=== PATIENT | female | born 1965 | race African-American/Black ===

== ENCOUNTER 2017-01-18 06:56 | Observation (INO) | payer BC ==
[2017-01-18 07:35] VITALS: BMI 28.3
[2017-01-18] MEDS ORDERED: SODIUM CHLORIDE 500 ML IV ONE (07:36)
[2017-01-18] MEDS ORDERED: ASPIRIN 81 MG CHEWABLE TABLETS PO ONE (07:36)
[2017-01-18] MEDS ORDERED: NITROGLYCERIN SUBLINGUAL 1/150 0.4 MG TAB SL ONE (07:36)
--- NOTE | 2017-01-18 07:38 | PDOC ---
History of Present Illness - General History Source: Patient Exam Limitations: No Limitations - History of Present Illness Initial Comments: 01/18/17 07:40 The patient is a 51 year old female, with a significant past medical history of anxiety, who presents to the emergency department with chest pain onset today after a 5:30am walk. She describes her chest pain as a sharp pressure, ranging from mils to moderate, without radiation or modifying factors. She states that she has shortness of breath associated with her chief complaint. She notes that she does not walk everyday but shes usually adeliada to walk for long periods of time. She states that today she was unable to walk more than 4 blocks. She reports that yesterday a work she began to feel nauseous and generally weak. She states that she had been nauseous prior to yesterdays episode. She denies any recent illness or travel. She reports that she had a stress test roughly 15 years ago, not sure why and not sure of the results. The patient denies headache and dizziness. Denies fever, chills, vomit, diarrhea and constipation. Denies dysuria, frequency, urgency and hematuria. Allergies: Vicodin, Iodine Past surgical history: Hysterectomy Social history: No alcohol, tobacco or drug use reported <Emery Garcia - Last Filed: 01/18/17 08:42> <Jorge Leon - Last Filed: 01/18/17 10:42> - General Stated Complaint: CHEST PAIN Time Seen by Provider: 01/18/17 07:36 Past History <Emery Garcia - Last Filed: 01/18/17 08:42> - Psycho/Social/Smoking Cessation Hx Anxiety: Yes Suicidal Ideation: No Smoking History: Never smoked Have you smoked in the past 12 months: No Information on smoking cessation initiated: No Hx Alcohol Use: No Drug/Substance Use Hx: No Substance Use Type: None <Jorge Leon - Last Filed: 01/18/17 10:42> - Past Medical History Allergies/Adverse Reactions: Allergies Allergy/AdvReac Type Severity Reaction Status Date / Time iodine Allergy Verified 01/18/17 07:35 acetaminophen [From Vicodin] AdvReac Verified 01/18/17 07:35 hydrocodone bitartrate AdvReac Verified 01/18/17 07:35 [From Vicodin] Home Medications: Ambulatory Orders Alprazolam [Xanax -] 0.5 mg PO PRN PRN 09/18/13 Review of Systems - Review of Systems Comments:: 01/18/17 07:41 <Emery Garcia - Last Filed: 01/18/17 08:42> - Review of Systems Constitutional: No: Chills, Fever HEENTM: No: Throat Swelling Respiratory: Yes: Shortness of Breath, SOB with Exertion. No: Cough Cardiac (ROS): Yes: Chest Pain, Lightheadedness. No: Edema, Palpitations, Syncope ABD/GI: Yes: Nausea. No: Vomiting Musculoskeletal: No: Muscle Pain Neurological: No: Headache All Other Systems: Reviewed and Negative <Jorge Leon - Last Filed: 01/18/17 10:42> *Physical Exam - Vital Signs Last Vital Signs Temp Pulse Resp BP Pulse Ox 98.0 F 93 H 18 103/82 100 01/18/17 07:00 01/18/17 07:00 01/18/17 07:00 01/18/17 07:00 01/18/17 07:00 - Physical Exam Comments: 01/18/17 07:41 GENERAL: The patient is awake, alert, and fully oriented, in no acute distress. HEAD: Normal with no signs of trauma. EYES: Pupils equal, round and reactive to light, extraocular movements intact, sclera anicteric, conjunctiva clear with no pallor. ENT: Ears normal, nares patent, oropharynx clear without exudates. Moist mucous membranes. NECK: Normal range of motion, supple without lymphadenopathy, JVD, or masses. LUNGS: Breath sounds equal, clear to auscultation bilaterally. No wheeze/ crackles. HEART: Regular rate and rhythm, normal S1 and S2 without murmur or rub. ABDOMEN: Soft/nontender/nondistended. BS wnl. No guarding or rebound. No palpable masses. No hepatosplenomegaly. EXTREMITIES: Normal range of motion, no edema. No clubbing or cyanosis. No cords , erythema, or tenderness. NEUROLOGICAL: Cranial nerves II through XII grossly intact. Normal speech, normal gait. PSYCH: Normal mood, normal affect. SKIN: Warm, Dry, normal turgor, no rashes or lesions noted. <Emery Garcia - Last Filed: 01/18/17 08:42> - Vital Signs Last Vital Signs Temp Pulse Resp BP Pulse Ox 98.0 F 93 H 18 103/82 100 01/18/17 07:00 01/18/17 07:00 01/18/17 07:00 01/18/17 07:00 01/18/17 07:00 <Jorge Leon - Last Filed: 01/18/17 10:42> Heart Score/ECG Review - History History: Moderately suspicious - Electrocardiogram EKG: Non specific repolarization disturbance - Age Age: 45-65 - Risk Factors Based on the list above the patient has:: No risk factors known - Troponin Troponin: </= normal limit - Score Heart Score - Total: 3 #1 ECG reviewed & interpreted by me at: 07:05 General ECG Interpretation: Sinus Rhythm, Normal Rate (97), Normal Intervals, No acute ischemic changes (nonspecific t wave changes inferior and lateral I/AVL ) #2 ECG reviewed & interpreted by me at: 08:01 General ECG Interpretation: Sinus Rhythm, Normal Rate (77), Normal Intervals, No acute ischemic changes (no acute ST changes) <Jorge Leon - Last Filed: 01/18/17 10:42> ED Treatment Course - LABORATORY CBC & Chemistry Diagram: 01/18/17 08:00 01/18/17 08:00 <Emery Garcia - Last Filed: 01/18/17 08:42> - LABORATORY CBC & Chemistry Diagram: 01/18/17 08:00 01/18/17 08:00 <Jorge Leon - Last Filed: 01/18/17 10:42> Medical Decision Making - Medical Decision Making 01/18/17 08:15 A portion of this note was documented by scribe services under my direction. I have reviewed the details of the note, within reason, and agree with the documentation with the following case summary and management plan written by me. 51-year-old female with no significant past medical history, and no notable ACS risk factors presents with chest pain this morning. Patient had new onset of exertional chest pain 2 days ago, since then has noticed fatigue with shortness of breath and a right sided/substernal chest tightness particularly with exertion. The dyspnea resolves with rest, but the chest pain persists, so she presents for evaluation. The episode this morning occurred with her 5:30 AM walk , her chest pain was persistent in the ED. Had a stress test about 15 years ago for unclear etiology that was reportedly normal. Denies smoking or cocaine use, denies significant family history, denies PE risk factors. Had a cholecystectomy in the past. Exam as noted and within normal limits EKG shows nonspecific T-wave changes, a repeat shows questionable normalization of the T-wave in aVL, the T waves in the inferior leads are still flattened. No ST changes. This is a 51-year-old female who presents with exertional chest pain and dyspnea over the last 48 hours, concerning for acute cardio pulmonary process. ACS seems highest on differential, patient is low risk for PE, will rule out other metabolic process such as anemia. Labs including d-dimer, urinalysis, urine EKG, chest x-ray Aspirin, nitroglycerin Will require admission for telemetry monitoring and further cardiac workup 01/18/17 09:45 Troponin negative, labs within normal limits. Ddimer pending, CXR pending. Pain improved after ntg, will proceed with admission plan. 01/18/17 10:40 Signout given to BALDO Elena, accepted by Dr. Stone for obs tele. Ddimer in normal range. CXR wnl on my prelim read. <Jorge Leon - Last Filed: 01/18/17 10:42> *DC/Admit/Observation/Transfer - Attestations Scribe Attestion: 01/18/17 07:41 Documentation prepared by Emery Garcia, acting as medical screener for Jorge Leon MD <Emery Garcia - Last Filed: 01/18/17 08:42> - Discharge Dispostion Admit: Yes <Jorge Leon - Last Filed: 01/18/17 10:42> Diagnosis at time of Disposition: Precordial chest pain, Dyspnea on exertion - Discharge Dispostion Condition at time of disposition: Fair
[2017-01-18 08:16] LABS: BASOPHIL 0.8 % (0-2.0); EOSINOPHIL 2.8 % (0-4.5); MCH 29.4 pg (25.7-33.7); MCHC 34.2 g/dl (32.0-36.0); MEAN CELL VOLUME 85.9 fl (80-96); MEAN PLT VOLUME 6.8 fl (7.5-11.1); NEUTROPHILS 60.5 % (42.8-82.8); PLATELET COUNT 370 K/MM3 (134-434); WHITE BLOOD COUNT 8.2 K/mm3 (4.0-10.0)
[2017-01-18] MEDS ORDERED: ASPIRIN 325 MG TABLET ONE (08:19)
[2017-01-18] MEDS ORDERED: NITROGLYCERIN SUBLINGUAL 1/150 0.4 MG TAB ONE (08:21)
[2017-01-18 08:38] LABS: ALBUMIN 4.2 g/dl (3.4-5.0); ANION GAP 12 (8-16); CALCIUM 9.5 mg/dL (8.5-10.1); CO2 27 mmol/L (21-32); CREATININE 0.8 mg/dL (0.55-1.02); GLUCOSE,RANDOM 121 mg/dL (74-106); MAGNESIUM 2.1 mg/dL (1.8-2.4); SGOT/AST 16 U/L (15-37); SGPT/ALT 31 U/L (12-78); TOT PROT 7.8 g/dl (6.4-8.2)
[2017-01-18 08:41] LABS: ALK PHOS 58 U/L (45-117); TROPONIN I < 0.02 ng/ml (0.00-0.05)
[2017-01-18 08:43] LABS: URINE APPEARANCE CLEAR; URINE BILIRUBIN NEGATIVE (NEGATIVE); URINE BLOOD NEGATIVE (NEGATIVE); URINE COLOR LTYELLOW; URINE GLUCOSE (UA) NEGATIVE (NEGATIVE); URINE KETONE NEGATIVE (NEGATIVE); URINE LEUK ESTERASE NEGATIVE (NEGATIVE); URINE NITRITE NEGATIVE (NEGATIVE); URINE PROTEIN NEGATIVE (NEGATIVE); URINE UROBILINOGEN NEGATIVE E.U./dl (0.2-1.0)
[2017-01-18 09:47] LABS: INR 1.07 (0.82-1.09); PROTHROMBIN TIME (PATIENT) 11.8 SEC (9.98-11.88)
[2017-01-18] MEDS ORDERED: NITROGLYCERIN SUBLINGUAL 1/150 0.4 MG TAB SL PRN (10:17)
--- NOTE | 2017-01-18 10:18 | HP ---
CHIEF COMPLAINT: Right sided and sub-sternal chest pain PCP: Titi HISTORY OF PRESENT ILLNESS: This is a 51 yo woman with PMH of anxiety who experienced sudden onset right sided to SSCP while walking approximately 4 blocks today. She experienced shortness of breath which was relieved with rest. She states she had a similar episode on 01/16. She states she normally has unlimited exercise tolerance (recent 4 hour continuous walk in [place] with difficulty). She states that the pain is different than pain she gets when she has an anxiety attack- pain and SOB usually resolve with ambulation. She denies cough, fevers, dizziness or lightheadedness. Had stress test ~15 years ago for unknown reasons. She does not remember the outcome of the stress test but no changes in treatments and/or medications after exam. ER course was notable for: (1) (-) troponin x1 (2) mild relief of CP (6->4) with NTG SL (3) CXR- Recent Travel: denies PAST MEDICAL HISTORY: Anxiety, uterine fibroids PAST SURGICAL HISTORY: cholecystectomy 12/2015, RAFAEL in 2003 Social History: Smoking: denies Alcohol: socially Drugs: denies Occupation: principal for elementary school Family History: Allergies iodine Allergy (Verified 01/18/17 07:35) acetaminophen [From Vicodin] Adverse Reaction (Verified 01/18/17 07:35) hydrocodone bitartrate [From Vicodin] Adverse Reaction (Verified 01/18/17 07:35) HOME MEDICATIONS: Home Medications 3 Medication Instructions Recorded Alprazolam [Xanax -] 0.5 mg PO PRN PRN 09/18/13 REVIEW OF SYSTEMS CONSTITUTIONAL: Present: generalized weakness Absent: fever, chills, diaphoresis, malaise, loss of appetite, weight change HEENT: Absent: rhinorrhea, nasal congestion, throat pain, throat swelling, difficulty swallowing, mouth swelling, ear pain, eye pain, visual changes CARDIOVASCULAR: Absent: chest pain, syncope, palpitations, irregular heart rate, lightheadedness , peripheral edema RESPIRATORY: Present: shortness of breath, dyspnea with exertion Absent: cough, orthopnea, wheezing, stridor, hemoptysis GASTROINTESTINAL: Present: nausea Absent: abdominal pain, abdominal distension, vomiting, diarrhea, constipation, melena, hematochezia GENITOURINARY: Absent: dysuria, frequency, urgency, hesitancy, hematuria, flank pain, genital pain MUSCULOSKELETAL: Absent: myalgia, arthralgia, joint swelling, back pain, neck pain SKIN: Absent: rash, itching, pallor HEMATOLOGIC/IMMUNOLOGIC: Absent: easy bleeding, easy bruising, lymphadenopathy, frequent infections ENDOCRINE: Absent: unexplained weight gain, unexplained weight loss, heat intolerance, cold intolerance NEUROLOGIC: Absent: headache, focal weakness or paresthesias, dizziness, unsteady gait, seizure, mental status changes, bladder or bowel incontinence PSYCHIATRIC: Absent: anxiety, depression, suicidal or homicidal ideation, hallucinations. PHYSICAL EXAMINATION Vital Signs - 24 hr 3 01/18/17 07:00 Temperature 98.0 F Pulse Rate 93 H Respiratory 18 Rate Blood Pressure 103/82 O2 Sat by Pulse 100 Oximetry (%) GENERAL: Awake, alert, and fully oriented, in no acute distress. HEAD: Normal with no signs of trauma. EYES: Pupils equal, round and reactive to light, extraocular movements intact, sclera anicteric, conjunctiva clear. No lid lag. EARS, NOSE, THROAT: Ears normal, nares patent, oropharynx clear without exudates. Moist mucous membranes. NECK: Normal range of motion, supple without lymphadenopathy, JVD, or masses. LUNGS: Breath sounds equal, clear to auscultation bilaterally. No wheezes, and no crackles. No accessory muscle use. HEART: Regular rate and rhythm, normal S1 and S2 without murmur, rub or gallop. ABDOMEN: Soft, nontender, not distended, normoactive bowel sounds, no guarding, no rebound, no masses. No hepatomegaly or splenomegaly. MUSCULOSKELETAL: Normal range of motion at all joints. No bony deformities or tenderness. No CVA tenderness. UPPER EXTREMITIES: 2+ pulses, warm, well-perfused. No cyanosis. No clubbing. No peripheral edema. LOWER EXTREMITIES: 2+ pulses, warm, well-perfused. No cords or calf tenderness. No peripheral edema. Negative Tyson's. NEUROLOGICAL: Cranial nerves II-XII intact. Normal speech. Gait not tested. PSYCHIATRIC: Cooperative. Good eye contact. Appropriate mood and affect. SKIN: Warm, dry, normal turgor, no rashes or lesions noted, normal capillary refill. Laboratory Results - last 24 hr 3 01/18/17 01/18/17 01/18/17 08:00 08:00 08:00 WBC 8.2 RBC 4.46 Hgb 13.1 Hct 38.3 MCV 85.9 MCHC 34.2 RDW 14.0 Plt Count 370 MPV 6.8 L Neutrophils % 60.5 Lymphocytes % 30.3 D Monocytes % 5.6 Eosinophils % 2.8 Basophils % 0.8 INR 1.07 Sodium 137 Potassium 3.8 Chloride 98 Carbon Dioxide 27 Anion Gap 12 BUN 12 D Creatinine 0.8 D Creat Clearance w eGFR > 60 Random Glucose 121 H D Calcium 9.5 Magnesium 2.1 Total Bilirubin 1.0 D AST 16 D ALT 31 D Alkaline Phosphatase 58 Creatine Kinase 293 H D CK-MB (CK-2) < 1.000 Troponin I < 0.02 Total Protein 7.8 Albumin 4.2 Urine Color Urine Appearance Urine pH Urine Protein Urine Glucose (UA) Urine Ketones Urine Blood Urine Nitrite Urine Bilirubin Urine Urobilinogen Ur Leukocyte Esterase Urine HCG, Qual 3 01/18/17 08:30 WBC RBC Hgb Hct MCV MCHC RDW Plt Count MPV Neutrophils % Lymphocytes % Monocytes % Eosinophils % Basophils % INR Sodium Potassium Chloride Carbon Dioxide Anion Gap BUN Creatinine Creat Clearance w eGFR Random Glucose Calcium Magnesium Total Bilirubin AST ALT Alkaline Phosphatase Creatine Kinase CK-MB (CK-2) Troponin I Total Protein Albumin Urine Color Ltyellow Urine Appearance Clear Urine pH 6.0 Urine Protein Negative Urine Glucose (UA) Negative Urine Ketones Negative Urine Blood Negative Urine Nitrite Negative Urine Bilirubin Negative Urine Urobilinogen Negative Ur Leukocyte Esterase Negative Urine HCG, Qual Negative ASSESSMENT/PLAN: A: This is a 51yo woman with PMH of anxiety and uterine fibroids who has had 2 episodes of chest pain and SOB. Marked decrease in exercise tolerance 4-5 blocks down from unlimited. HEART score-3. D-dimer 211. Well's criteria 0.0pts with chance of PE 1.3%. Will continue ACS w/u including echo and cards consult. P: 1. Chest pain ACS vs GERD - serial troponins - echo pending - daily ASA 325mg - start metoprolol 50mg BID with close BP monitoring - NTG 0.4 SL PRN - AM lipid panel - Start Lipitor 40mg - cards consult from ED Sandy pending - Maalox PRN - start Protonix 40mg 2. Anxiety - Xanax 0.5mg PRN 3. F/E/N - low NA diet - replete prn 4. PPX - start Protonix - OOB - Lovenox Dispo- requires observation for acute medical condition Code Status- FULL CODE Visit type - Emergency Visit Emergency Visit: Yes ED Registration Date: 01/18/17 Care time: The patient presented to the Emergency Department on the above date and was hospitalized for further evaluation of their emergent condition. - New Patient This patient is new to me today: Yes Date on this admission: 01/19/17 - Critical Care Critical Care patient: No
--- NOTE | 2017-01-18 10:37 | CON.CARD ---
Consult Consult Specialty:: Cardiology - History of Present Illness Chief Complaint: chest pain History of Present Illness: The patient is a 51 year old female, with a significant past medical history of anxiety, who presents to the emergency department with chest pain onset today after a 5:30am walk. She describes her chest pain as a sharp pressure, ranging from mils to moderate, without radiation or modifying factors. She states that she has shortness of breath associated with her chief complaint. She notes that she does not walk everyday but shes usually adelaida to walk for long periods of time. She states that today she was unable to walk more than 4 blocks. She reports that yesterday a work she began to feel nauseous and generally weak. She states that she had been nauseous prior to yesterdays episode. She denies any recent illness or travel. She reports that she had a stress test roughly 15 years ago, not sure why and not sure of the results. The patient denies headache and dizziness. Denies fever, chills, vomit, diarrhea and constipation. Denies dysuria, frequency, urgency and hematuria. Allergies: Vicodin, Iodine Past surgical history: Hysterectomy Social history: No alcohol, tobacco or drug use reported - Alcohol/Substance Use Hx Alcohol Use: No - Smoking History Smoking history: Never smoked Have you smoked in the past 12 months: No Home Medications - Allergies Allergies/Adverse Reactions: Allergies Allergy/AdvReac Type Severity Reaction Status Date / Time iodine Allergy Verified 01/18/17 07:35 acetaminophen [From Vicodin] AdvReac Verified 01/18/17 07:35 hydrocodone bitartrate AdvReac Verified 01/18/17 07:35 [From Vicodin] - Home Medications Home Medications: Ambulatory Orders Alprazolam [Xanax -] 0.5 mg PO PRN PRN 09/18/13 Review of Systems - Review of Systems Constitutional: reports: No Symptoms Eyes: reports: No Symptoms HENT: reports: No Symptoms Neck: reports: No Symptoms Cardiovascular: reports: Chest Pain Respiratory: reports: SOB on Exertion Gastrointestinal: reports: No Symptoms Genitourinary: reports: No Symptoms Breasts: reports: No Symptoms Reported Musculoskeletal: reports: No Symptoms Integumentary: reports: No Symptoms Neurological: reports: No Symptoms Endocrine: reports: No Symptoms Hematology/Lymphatic: reports: No Symptoms Psychiatric: reports: No Symptoms Vital Signs: Vital Signs Temperature 98.0 F 01/18/17 07:00 Pulse Rate 73 01/18/17 10:31 Respiratory Rate 16 01/18/17 10:31 Blood Pressure 122/84 01/18/17 10:31 O2 Sat by Pulse Oximetry (%) 100 01/18/17 10:31 Constitutional: Yes: Well Nourished, No Distress, Calm Eyes: Yes: WNL, Conjunctiva Clear, EOM Intact HENT: Yes: WNL, Atraumatic, Normocephalic Neck: Yes: WNL, Supple, Trachea Midline Respiratory: Yes: WNL, Regular, CTA Bilaterally Gastrointestinal: Yes: WNL, Normal Bowel Sounds Renal/: Yes: WNL Cardiovascular: Yes: WNL, Regular Rate and Rhythm Musculoskeletal: Yes: WNL Extremities: Yes: WNL Integumentary: Yes: WNL Neurological: Yes: WNL, Alert, Oriented ...Motor Strength: WNL Psychiatric: Yes: WNL, Alert, Oriented - Other Data Labs, Other Data: CBC, BMP 01/18/17 08:00 01/18/17 08:00 INR, PTT INR 1.07 (0.82-1.09) 01/18/17 08:00 Troponin, BNP 01/18/17 08:00 Troponin I < 0.02 Troponin, BNP 01/18/17 08:00 Troponin I < 0.02 Problem List - Problems (1) Dyspnea on exertion Code(s): R06.09 - OTHER FORMS OF DYSPNEA (2) Precordial chest pain Code(s): R07.2 - PRECORDIAL PAIN Assessment/Plan atypical CP r/o PR negative plan MIBI stress test
[2017-01-18] MEDS ORDERED: ALPRAZOLAM PO PRN (11:49)
--- NOTE | 2017-01-18 11:49 | EKG ---
Test Reason : Blood Pressure : / mmHG Vent. Rate : 097 BPM Atrial Rate : 097 BPM P-R Int : 148 ms QRS Dur : 084 ms QT Int : 344 ms P-R-T Axes : 074 029 021 degrees QTc Int : 436 ms NORMAL SINUS RHYTHM POSSIBLE LEFT ATRIAL ENLARGEMENT NONSPECIFIC ST AND T WAVE ABNORMALITY ABNORMAL ECG WHEN COMPARED WITH ECG OF 18-SEP-2013 20:11, NO SIGNIFICANT CHANGE WAS FOUND Confirmed by NATHALY GONZALEZ MD ([id number]) on 01/18/2017 11:49:27 AM Referred By: Confirmed By:NATHALY GONZALEZ MD
--- NOTE | 2017-01-18 11:49 | EKG ---
Test Reason : Blood Pressure : / mmHG Vent. Rate : 077 BPM Atrial Rate : 077 BPM P-R Int : 152 ms QRS Dur : 088 ms QT Int : 396 ms P-R-T Axes : 074 025 012 degrees QTc Int : 448 ms NORMAL SINUS RHYTHM WITH SINUS ARRHYTHMIA NONSPECIFIC T WAVE ABNORMALITY ABNORMAL ECG WHEN COMPARED WITH ECG OF 18-JAN-2017 07:05, NO SIGNIFICANT CHANGE WAS FOUND Confirmed by NATHALY GONZALEZ MD ([id number]) on 01/18/2017 11:49:25 AM Referred By: Confirmed By:NATHALY GONZALEZ MD
[2017-01-18] MEDS: METOPROLOL TARTRATE 50 MG TABLET (FP) PO SCH ×2 (12:09→22:00)
[2017-01-18] MEDS: ONDANSETRON 4 MG/2 ML VIAL IVPUSH SCH ×4 (12:09→23:13)
[2017-01-18 15:26] LABS: TROPONIN I < 0.02 ng/ml (0.00-0.05)
[2017-01-18] MEDS ORDERED: IBUPROFEN 400 MG TABLET (FP) PO ONE (18:11)
[2017-01-18] MEDS ORDERED: ATORVASTATIN CA 40 MG TABLET (FP) PO SCH (22:00)
[2017-01-18] MEDS ORDERED: ALPRAZolam 0.25 MG TABLET PO ONE (22:35)
--- NOTE | 2017-01-18 22:50 | HOSP ---
Subjective - Review of Symptoms Events since last encounter: Paged regarding pt refusing statin, metoprolol, and zofran. Pt states she does not want statin as her cholesterol is not known at this time. I explained to pt benefits of taking statin especially consider differential diagnosis of ACS. Pt states she would like to speak with her provider in the AM after lipid profile is back. Pt refusing metoprolol stating her BP is not high and zofran refused because she is not nauseous. Pt to speak with provider regarding medications and lipid profile tomorrow. Physical Examination Vital Signs: Vital Signs Temperature 98.0 F 01/18/17 17:00 Pulse Rate 77 01/18/17 17:00 Respiratory Rate 18 01/18/17 17:00 Blood Pressure 109/51 01/18/17 17:00 O2 Sat by Pulse Oximetry (%) 98 01/18/17 15:51 Visit type - Emergency Visit Emergency Visit: Yes ED Registration Date: 01/18/17 Care time: The patient presented to the Emergency Department on the above date and was hospitalized for further evaluation of their emergent condition. - New Patient This patient is new to me today: Yes Date on this admission: 01/18/17 - Critical Care Critical Care patient: No
[2017-01-19] MEDS: ONDANSETRON 4 MG/2 ML VIAL IVPUSH SCH ×3 (04:18→13:46)
[2017-01-19 09:07] LABS: BASOPHIL 0.7 % (0-2.0); EOSINOPHIL 2.7 % (0-4.5); MCH 29.3 pg (25.7-33.7); MCHC 33.8 g/dl (32.0-36.0); MEAN PLT VOLUME 6.8 fl (7.5-11.1); NEUTROPHILS 54.1 % (42.8-82.8); PLATELET COUNT 358 K/MM3 (134-434); RDW 14.1 % (11.6-15.6); WHITE BLOOD COUNT 8.9 K/mm3 (4.0-10.0)
[2017-01-19 09:18] LABS: CHOLESTEROL 231 mg/dL (50-200); LDL CHOLESTEROL (ONLY SJRH) 163 mg/dL (5-100)
[2017-01-19] MEDS ORDERED: ASPIRIN 325 MG ENTERIC COATED TABLET (FP) PO SCH (10:00)
[2017-01-19] MEDS ORDERED: ENOXAPARIN NA (PORCINE) 40 MG/0.4 ML DISP.SYRIN SQ SCH (10:00)
[2017-01-19] MEDS ORDERED: ASPIRIN COATED 81 MG TABLET.EC PO SCH (11:08)
--- NOTE | 2017-01-19 11:56 | PN ---
Progress Note, Physician History of Present Illness: The patient is a 51 year old female, with a significant past medical history of anxiety, who presents to the emergency department with chest pain onset today after a 5:30am walk. She describes her chest pain as a sharp pressure, ranging from mils to moderate, without radiation or modifying factors. She states that she has shortness of breath associated with her chief complaint. She notes that she does not walk everyday but shes usually adelaida to walk for long periods of time. She states that today she was unable to walk more than 4 blocks. She reports that yesterday a work she began to feel nauseous and generally weak. She states that she had been nauseous prior to yesterdays episode. She denies any recent illness or travel. She reports that she had a stress test roughly 15 years ago, not sure why and not sure of the results. The patient denies headache and dizziness. Denies fever, chills, vomit, diarrhea and constipation. Denies dysuria, frequency, urgency and hematuria. Allergies: Vicodin, Iodine Past surgical history: Hysterectomy Social history: No alcohol, tobacco or drug use reported - Current Medication List Current Medications: Active Medications Aspirin (Ecotrin -) 81 mg PO DAILY [facility] Atorvastatin Calcium (Lipitor -) 40 mg PO HS [facility] Last Admin: 01/18/17 22:00 Dose: Not Given Enoxaparin Sodium (Lovenox -) 40 mg SQ DAILY [facility] Metoprolol Tartrate (Lopressor -) 50 mg PO BID [facility] Last Admin: 01/18/17 22:00 Dose: Not Given Nitroglycerin (Nitrostat -) 0.4 mg SL Q5M PRN PRN Reason: FOR CHEST PAIN Non-Formulary Medication (Alprazolam [Xanax -]) 0.5 mg PO PRN PRN PRN Reason: ANXIETY Ondansetron HCl (Zofran Injection) 4 mg IVPUSH Q4H [facility] Last Admin: 01/19/17 04:18 Dose: Not Given - Objective Vital Signs: Vital Signs Temperature 98.6 F 01/19/17 08:13 Pulse Rate 79 01/19/17 08:13 Respiratory Rate 20 01/19/17 08:13 Blood Pressure 124/73 01/19/17 08:13 O2 Sat by Pulse Oximetry (%) 100 01/19/17 06:00 Eyes: Yes: WNL, Conjunctiva Clear, EOM Intact HENT: Yes: WNL, Atraumatic, Normocephalic Neck: Yes: WNL, Supple, Trachea Midline Cardiovascular: Yes: WNL, Regular Rate and Rhythm Respiratory: Yes: WNL, Regular, CTA Bilaterally Gastrointestinal: Yes: WNL, Normal Bowel Sounds Genitourinary: Yes: WNL Musculoskeletal: Yes: WNL Extremities: Yes: WNL Edema: No Integumentary: Yes: WNL Neurological: Yes: WNL, Alert, Oriented ...Motor Strength: WNL Psychiatric: Yes: WNL Labs: CBC, BMP 01/19/17 08:15 INR, PTT INR 1.07 (0.82-1.09) 01/18/17 08:00 Problem List - Problems (1) Dyspnea on exertion Code(s): R06.09 - OTHER FORMS OF DYSPNEA (2) Precordial chest pain Code(s): R07.2 - PRECORDIAL PAIN Assessment/Plan atypical CP r/o SD negative plan MIBI stress test was negative for inducible ischemia will d/c home on asa lipitor and f/u as outp.
[2017-01-19] MEDS ORDERED: ALPRAZolam 0.25 MG TABLET PO PRN (12:44)
[2017-01-19] MEDS: METOPROLOL TARTRATE 50 MG TABLET (FP) PO SCH (14:04)
[2017-01-19] MEDS ORDERED: ONDANSETRON 4 MG/2 ML VIAL IVPUSH PRN (14:14)
--- NOTE | 2017-01-19 14:56 | DS ---
Physical Exam: SUBJECTIVE: Patient seen and examined. She conveys a lot of stress in her life, she eats a lot of sea food and knows she needs to take better care of herself. She does report being seen at [facility] for GERD was given a medication she cannot recall for which she stopped taking. OBJECTIVE: Vital Signs Period Temp Pulse Resp BP Sys/Salazar Pulse Ox Last 24 Hr 97.9 F-99.1 F 77-86 18-20 98-145/51-73 98-100 PE Neuro: alert, awake, cn 2-12intact Pulm: CTAB CV: s1 s2 rrr no mrg Abd: s nt nd + bs Ext: warm, no le edema Laboratory Results - last 24 hr 01/18/17 01/18/17 01/18/17 14:50 14:50 21:00 WBC RBC Hgb Hct MCV MCHC RDW Plt Count MPV Neutrophils % Lymphocytes % Monocytes % Eosinophils % Basophils % Troponin I < 0.02 < 0.02 B-Natriuretic Peptide 9.92 Cancelled Triglycerides Cholesterol Total LDL Cholesterol HDL Cholesterol 01/19/17 01/19/17 08:15 08:15 WBC 8.9 RBC 4.20 Hgb 12.3 Hct 36.5 MCV 87.0 MCHC 33.8 RDW 14.1 Plt Count 358 MPV 6.8 L Neutrophils % 54.1 Lymphocytes % 37.8 D Monocytes % 4.7 Eosinophils % 2.7 Basophils % 0.7 Troponin I B-Natriuretic Peptide Triglycerides 162 H Cholesterol 231 H Total LDL Cholesterol 163 H HDL Cholesterol 44 HOSPITAL COURSE: Date of Admission:01/18/17 Date of Discharge: 01/19/17 Minutes to complete discharge: 36 Discharge Summary Reason For Visit: PRECORDIAL PAIN Current Active Problems Dyspnea on exertion (Acute) Precordial chest pain (Acute) Hospital Course: Initial Hospital Course: Briefly, this 51 year old female with PMH of anxiety who experienced sudden onset right sided to sub sternal while walking approximately 4 blocks. She experienced shortness of breath which was relieved with rest. She stated she had a similar episode on 01/16. At baseline she has unlimited exercise tolerance until recently had a 4 hour continuous walk in [place] with difficulty. She stated that the pain is different than pain she gets when she has an anxiety attack- pain and SOB usually resolve with ambulation. Subsequent Hospital Course/Progress Note/Discharge Summary: ECHO 01/19: normal LV size, function, no wall motion abnormality, mild MR/TR Patient underwent MIBI stress 01/19 test was negative for inducible ischemia Home with ASA and lipitor Pt was advised to follow up wit her [facility] pcp/GI doctors for continued work up and possible EGD. Dispo: - Home with cardiology and pcp/gi follow up - pt agree and aware to above plan Condition: Stable - Instructions Diet, Activity, Other Instructions: Please return to the ED for any new, persistent, or worsening symptoms. Follow up with your PCP in 1 week. Take new medications as directed (ASA, Lipitor) Make an appt to see cardiology (referral enclosed) in 1-2 weeks You will need to follow up with your doctor, or GI doctor at [facility] for further work up, consider EGD for rule out ulcers. Referrals: Andrés Delgado MD [Staff Physician] - Disposition: HOME - Home Medications Comprehensive Discharge Medication List: Ambulatory Orders Alprazolam [Xanax -] 0.5 mg PO PRN PRN 09/18/13 Aspirin Coated [Ecotrin -] 81 mg PO DAILY #30 tab 01/19/17 Atorvastatin Ca [Lipitor] 40 mg PO HS tablet 01/19/17 This patient is new to me today: Yes Date on this admission: 01/19/17 Emergency Visit: Yes ED Registration Date: 01/18/17 Care time: The patient presented to the Emergency Department on the above date and was hospitalized for further evaluation of their emergent condition. Critical Care patient: No - Discharge Referral Referred to [facility] No
[2017-01-19 15:00] VITALS: BP 110/65; PULSE 72; TEMP 97.7
[2017-01-20] MEDS ORDERED: METOPROLOL TARTRATE 25 MG TABLET (FP) PO SCH (10:00)
== END 2017-01-19 16:32 | disposition home or self-care (01) ==
LOC: JER 06:56 → JERBED 10:43 → J4W 15:12
PROVIDERS: ADMIT Internal Medicine; ATTEND Nurse Practitioner Acute Care
PROC: 3E0337Z Introduction of Electrolytic and Water Balance Substance into Peripheral Vein, Percutaneous Approach (ICD-10-PCS; principal; 2017-01-18)
PROC: 3E033GC Introduction of Other Therapeutic Substance into Peripheral Vein, Percutaneous Approach (ICD-10-PCS; 2017-01-18)
DX: R07.2 Precordial pain (principal); R06.09 Other forms of dyspnea; F41.9 Anxiety disorder, unspecified; Z79.82 Long term (current) use of aspirin
CPT/HCPCS: 36415; 71010-TC; 78452-TC; 80053; 80061; 81003; 82550; 82553; 83721; 83735; 83880; 84484; 84703; 85025; 85379; 85610; 93005; 93010; 93017; 93306-TC; 99285-25; A9502; G0378